=== PATIENT | female | born 1970 | race Caucasian/White ===

== ENCOUNTER 2023-09-18 10:48 | Emergency (ER) | payer MEDICAID ==
[~2023-09-18] VITALS: Ht 172.7 cm; Wt 54.9 kg
[2023-09-18 10:57] VITALS: BP 138/78; TEMP 98.7
[2023-09-18] MEDS ORDERED: LIDOCAINE HCL/MPF 1% 30 ML VIAL IJ ONE (11:10)
[2023-09-18] MEDS ORDERED: LIDOCAINE 1% INJ 50 ML MDV IJ ONE ×2 (11:28→11:30)
[2023-09-18 14:31] VITALS: O2SAT 100
== END 2023-09-18 14:31 | disposition home or self-care (01) ==
LOC: ER 10:50
DX: S61.512A Laceration without foreign body of left wrist, initial encounter (principal); W45.8XXA Other foreign body or object entering through skin, initial encounter; Y93.89 Activity, other specified; Y92.89 Other specified places as the place of occurrence of the external cause; Y99.8 Other external cause status
CPT/HCPCS: 12002; 73110; 99283; A6403; J3490